=== PATIENT | female | born 1965 | race African-American/Black ===

== ENCOUNTER 2017-05-26 12:21 | Emergency (ER) | payer OTHER ==
[2017-05-26 12:34] VITALS: BMI 28.3
[2017-05-26] MEDS ORDERED: SODIUM CHLORIDE 0.9% 500 ML INFUS.BAG IV ONE (13:11)
[2017-05-26] MEDS ORDERED: ONDANSETRON 4 MG/2 ML VIAL IVPUSH ONE (13:13)
--- NOTE | 2017-05-26 13:14 | PDOC ---
History of Present Illness - General Chief Complaint: Lightheaded Stated Complaint: DIZZINESS, DIARRHEA Time Seen by Provider: 05/26/17 13:00 - History of Present Illness Initial Comments: 51 year old previously healthy female presenting with 7.5 hours of nausea, vomiting, diarrhea, and overall weakness. States that she woke up this morning and immediately experienced nausea, weakness, and felt as if the ground was shifting while she was walking. She went to the bathroom slowly and immediately experienced multiple episodes of bilious , non-bloody vomiting with NB diarrhea. She experienced very similar symptoms two years prior and had a working diagnosis of vertigo, prescribed meclizine, but never tried the medication as the symptoms self-resolved. 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 Admits to chills and diaphoresis whiel in the waiting room with worsening vertiginous symptoms but no measured fevers, SOB, chest pain, cough, myalgias, back pain, dysuria, abdominal pain, discharge, arthralgias, neck stiffness, visual symptoms besides mentioned, or other illness. 05/26/17 13:09 Past History - Past Medical History Allergies/Adverse Reactions: Allergies Allergy/AdvReac Type Severity Reaction Status Date / Time No Known Allergies Allergy Verified 05/26/17 12:31 Home Medications: Ambulatory Orders Meclizine HCl 25 mg PO BID PRN 7 Days #14 tablet 05/26/17 COPD: No - Suicide/Smoking/Psychosocial Hx Smoking History: Never smoked Information on smoking cessation initiated: No Hx Alcohol Use: No Drug/Substance Use Hx: No Substance Use Type: None Review of Systems - Review of Systems Constitutional: Yes: Chills, Diaphoresis. No: Fever, Loss of Appetite HEENTM: No: Blurred Vision, Recent change in vision, Nose Congestion, Mouth Pain Respiratory: No: Cough, Orthopnea, Shortness of Breath, Wheezing, Productive cough, Hemoptysis Cardiac (ROS): Yes: Lightheadedness. No: Chest Pain, Edema, Irregular Heart Rate, Palpitations, Syncope, Chest Tightness ABD/GI: Yes: Diarrhea, Nausea, Poor Appetite, Vomiting. No: Constipated, Abdominal cramping, Tarry Stools : No: Dysuria, Discharge, Frequency, Hematuria, Pain, Urgency Musculoskeletal: No: Muscle Pain, Muscle Weakness Integumentary: No: Change in Color, Change in Hair/Nails, Flushing, Lesions Neurological: Yes: Paresthesia (right hand paresthesias occasionally), Weakness. No: Headache, Numbness Psychiatric: No: Anxiety *Physical Exam - Vital Signs Last Vital Signs Temp Pulse Resp BP Pulse Ox 97.6 F 81 18 121/76 100 05/26/17 12:32 05/26/17 12:32 05/26/17 12:32 05/26/17 12:32 05/26/17 12:32 - Physical Exam General Appearance: Yes: Nourished, Appropriately Dressed. No: Apparent Distress HEENT: positive: EOMI, ALCIDES, Normal ENT Inspection, Normal Voice, TMs Normal, Pharynx Normal Neck: positive: Trachea midline, Normal Thyroid, Supple. negative: Tender, Rigid Respiratory/Chest: positive: Lungs Clear, Normal Breath Sounds. negative: Chest Tender, Respiratory Distress, Accessory Muscle Use Cardiovascular: positive: Regular Rhythm, Regular Rate. negative: Murmur Gastrointestinal/Abdominal: positive: Normal Bowel Sounds, Flat, Soft. negative : Tender Musculoskeletal: positive: Normal Inspection Extremity: positive: Normal Capillary Refill, Normal Inspection, Normal Range of Motion. negative: Tender Integumentary: positive: Normal Color, Dry, Warm Neurologic: positive: engraver II-XII NML intact, Fully Oriented, Alert, Normal Mood/ Affect, Normal Response, Motor Strength 5/5, Other (Gait slightly slowed and occasionally appears unstable. Angy Hallpike negative but) ED Treatment Course - LABORATORY CBC & Chemistry Diagram: 05/26/17 13:00 05/26/17 13:00 Medical Decision Making - Medical Decision Making 51 year old previously healthy female with symptoms strongly suspicious for vertigo. Not complaining of headaches, floaters, visual field deficits, or focal neurological deficit. No cardiac risk factors and not acutely hypertensive. PE angy hallpike negative but symptomatic description strong for vertigo. Given, above this is not likely intracranial process (mass, stroke, aneurism), cardiac event, spinal cord lesion or other more concerning acute event. Given sick contacts, this could be flu prodrome in isolation of vertigo exacerbated by flu prodrome. Also possibly electrolyte abnormality or underlying infection. Will flu swab, get CBC, CMP, upreg, UA and give 1 L NS + zofran + meclizine. 05/26/17 13:40 Labs WNL, symptoms eventually controlled after meclizine 0.3 then Valium and Zofran then Metoclopramide. PAtietn feeling better so will send home with folow up with Parvin, PCP, and Meclizine script. 05/26/17 16:43 *DC/Admit/Observation/Transfer Diagnosis at time of Disposition: Vertigo - Discharge Dispostion Disposition: HOME Condition at time of disposition: Improved Admit: No - Prescriptions Prescriptions: Meclizine HCl 25 mg PO BID PRN 7 Days #14 tablet PRN Reason: Vertigo - Referrals Referrals: Bijal Barcenas MD [Primary Care Provider] - Royer Melendrez MD [Staff Physician] - - Patient Instructions Printed Discharge Instructions: DI for Vertigo Additional Instructions: You were seen for what we believe is vertigo. You should follow up with Dr. Melendrez for further evaluation of your vertigo. Please take your medications as prescribed. Please return to the ED if you have any worsening symptoms. - Post Discharge Activity
[2017-05-26] MEDS ORDERED: MECLIZINE HCL 25 MG TABLET (FP) PO ONE (13:22)
[2017-05-26] MEDS ORDERED: ONDANSETRON 4 MG/2 ML VIAL ONE (13:31)
[2017-05-26 13:47] LABS: BASO % 0.5 % (0-2.0); EOS % 1.2 % (0-4.5); HEMATOCRIT 39.3 % (32.4-45.2); LYMPH % 19.9 % (8-40); MCH 20.8 pg (25.7-33.7); MCHC 30.6 g/dl (32.0-36.0); MEAN CELL VOLUME 68.1 fl (80-96); MONO % 6.1 % (3.8-10.2); NEUT % 72.3 % (42.8-82.8); PLATELET COUNT 283 K/MM3 (134-434); RBC 5.78 M/mm3 (3.60-5.2); RDW 15.4 % (11.6-15.6); WHITE BLOOD COUNT 6.8 K/mm3 (4.0-10.0)
--- NOTE | 2017-05-26 14:00 | PDOC ---
Attending Attestation - Resident Resident Name: Amy Moore - ED Attending Attestation I have performed the following: I have examined & evaluated the patient, The case was reviewed & discussed with the resident, I agree w/resident's findings & plan, Exceptions are as noted - HPI HPI: 05/26/17 13:51 51y F no pmhx presents with 8 hrs of n/v/ diahrrhea. pt also enodrses some vomiting that is yelooish, nonbloody vomiting. nonbloody/nonmelantic diarrhea, pt endorses some diaphoresis, and feeling alittle off balance when she is walking. off balance senatio nworse when she is looking down or moving, resolves at rest. Denies any vision changes, dsyarthria, weakness, neck pain, headache, tinnitus, recent uri. Denies fever, chills, chest pain, palpitations, sob. Pt staets she has had simialr sypmtoms in dec that resolved spontaneously. 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 5/5 sensation: intact and symmetric in upper/lower extremitieis no facial assymetriy, sensation intact in v1-v3 gait: noraml nonataxic gait cardiac exam is rrr, no m/r/g abd soft nontender pulm cta no wheezing suspect peripheral vertigo no sabnormal physical findings to suggest cerebellar cause no risk factors for cva will give meclizine, zofran for sypmtmatic releive will ck labs to r/o anemia, metabolic dernagement - Physicial Exam PE: 05/26/17 17:21 see above - Medical Decision Making 05/26/17 16:46 Patient is feeling improved will discharge patient with meclizine and neuro follow-up Heart Score/ECG Review - ECG Impressions Comment:: 05/26/17 16:45 Twelve-lead EKG was performed and reviewed by me. There is normal sinus rhythm with a normal rate. Rate is 76 Normal axis Nonspecific T wave flattening in lead 3
[2017-05-26] MEDS ORDERED: MECLIZINE HCL 25 MG TABLET (FP) ONE (14:16)
[2017-05-26 14:31] LABS: ALBUMIN 3.6 g/dl (3.4-5.0); ANION GAP 7 (8-16); BLOOD UREA NITROGEN 13 mg/dL (7-18); CALCIUM 8.4 mg/dL (8.5-10.1); CHLORIDE 107 mmol/L (98-107); CO2 24 mmol/L (21-32); CREATININE 0.8 mg/dL (0.55-1.02); GLUCOSE,RANDOM 131 mg/dL (74-106); POTASSIUM 3.8 mmol/L (3.5-5.1); SGOT/AST 14 U/L (15-37); SGPT/ALT 25 U/L (12-78); SODIUM 138 mmol/L (136-145)
[2017-05-26 14:33] LABS: ALK PHOS 105 U/L (45-117); BILIRUBIN,TOTAL 0.5 mg/dL (0.2-1.0); TOT PROT 7.3 g/dl (6.4-8.2)
[2017-05-26 14:55] LABS: ADD RBC MORPHOLOGY YES
[2017-05-26] MEDS ORDERED: diazePAM 5 MG TABLET PO ONE (15:19)
[2017-05-26] MEDS ORDERED: METOCLOPRAMIDE HCL INJECTION 10 MG/2 ML VIAL IVPUSH ONE (15:19)
[2017-05-26 15:35] LABS: ANISOCYTOSIS 1+; MACROCYTOSIS 0; PLATELET ESTIMATE NORMAL
[2017-05-26] MEDS ORDERED: METOCLOPRAMIDE HCL INJECTION 10 MG/2 ML VIAL ONE (16:02)
[2017-05-26] MEDS ORDERED: diazePAM 5 MG TABLET ONE (16:02)
[2017-05-26 16:45] LABS: URINE APPEARANCE CLEAR; URINE BILIRUBIN NEGATIVE (NEGATIVE); URINE BLOOD 2+ (NEGATIVE); URINE COLOR STRAW; URINE GLUCOSE (UA) NEGATIVE (NEGATIVE); URINE KETONE NEGATIVE (NEGATIVE); URINE LEUK ESTERASE TRACE (NEGATIVE); URINE NITRITE NEGATIVE (NEGATIVE); URINE PROTEIN NEGATIVE (NEGATIVE); URINE UROBILINOGEN NEGATIVE mg/dL (0.2-1.0)
[2017-05-26 16:59] LABS: EPI CELLS RARE /HPF (FEW); URINE BACTERIA RARE /hpf (NONE SEEN); URINE MUCUS RARE
[2017-05-26 17:07] VITALS: BP 111/74; PULSE 73; TEMP 98.6
--- NOTE | 2017-05-27 12:56 | EKG ---
Test Reason : Blood Pressure : / mmHG Vent. Rate : 076 BPM Atrial Rate : 076 BPM P-R Int : 132 ms QRS Dur : 082 ms QT Int : 392 ms P-R-T Axes : 065 -01 020 degrees QTc Int : 441 ms NORMAL SINUS RHYTHM POSSIBLE LEFT ATRIAL ENLARGEMENT BORDERLINE ECG NO PREVIOUS ECGS AVAILABLE Confirmed by Raheem Davidson ([id number]) on 05/27/2017 12:56:43 PM Referred By: Confirmed By:Raheem Davidson
== END 2017-05-26 17:21 | disposition home or self-care (01) ==
LOC: JER 12:21
PROC: 3E033GC Introduction of Other Therapeutic Substance into Peripheral Vein, Percutaneous Approach (ICD-10-PCS; principal; 2017-05-26)
PROC: 3E033GC Introduction of Other Therapeutic Substance into Peripheral Vein, Percutaneous Approach (ICD-10-PCS; 2017-05-26)
DX: R42 Dizziness and giddiness (principal)
CPT/HCPCS: 36415; 80053; 81003; 81015; 84703; 85025; 87086; 87804; 93005; 93010; 99285-25